=== PATIENT | female | born 1975 | race African-American/Black ===

== ENCOUNTER 2016-10-26 22:35 | Emergency (ER) | payer MEDICARE, OTHER ==
[2016-10-26 18:43] LABS: BASOPHILS 0.1 %; BASOPHILS ABSOLUTE 0.01 10/3/uL (0.0-0.16); EOSINOPHILS 0.6 %; EOSINOPHILS ABSOLUTE 0.05 10/3/uL (0.0-0.53); ER CBC TAT 0 Hrs 08 Mins; HEMATOCRIT 41.9 % (36.0-48.0); HEMOGLOBIN 14.4 g/dL (12.0-16.0); IMMATURE GRANULOCYTES 0.1 %; IMMATURE GRANULOCYTES ABSOLUTE 0.01 10/3/uL (0.0-0.11); LYMPHOCYTES ABSOLUTE 3.94 10/3/uL (0.67-4.30); MEAN CORPUS HGB CONC 34.4 g/dL (32.0-36.0); MEAN CORPUSCULAR HEMOGLOB 30.6 pg (26.0-34.0); MEAN CORPUSCULAR VOLUME 89.1 fL (80-100); MEAN PLATELET VOLUME 8.8 fL (9.2-13.0); MONOCYTES 7.3 %; NEUTROPHILS 43.9 %; PLATELET COUNT 385 10/3/uL (150-400); RBC DISTRIBUTION WIDTH 12.9 % (12.0-16.0); WHITE BLOOD CELLS 8.2 10/3/uL (4.5-10.5)
[2016-10-26 18:46] LABS: MANUAL DIFF NO %
[2016-10-26 18:52] LABS: INTERNATIONAL NORMAL RATI 1.4 UNITS (-); PARTIAL THROMBO TIME 33.1 SEC (22.5-37.2)
[2016-10-26 18:56] LABS: PROTIME (NOT ORD) 17.1 SEC (12.0-14.5)
[2016-10-26 18:57] LABS: BUN (BLOOD UREA NITROGEN) 10 MG/DL (6-23); CHEST PAIN PROFILE TAT 0 Hrs 22 Mins; CHLORIDE, SERUM 96 MMOL/L (96-112); CREATININE 0.88 MG/DL (0.55-1.02); GFR AFRICAN AMERICAN 93 ML/MIN (>=60); GFR NON AFRICAN AMERICAN 80 ML/MIN (>=60); POTASSIUM, SERUM 3.2 MMOL/L (3.5-5.3); SODIUM, SERUM 136 MMOL/L (135-148); TROPONIN I 0.03 NG/ML (<0.05)
[2016-10-26 19:00] LABS: CALCIUM, SERUM 8.1 MG/DL (8.5-10.4); CO2 (CARBON DIOXIDE) 30 MMOL/L (24-34); GLUCOSE, SERUM 98 MG/DL (60-99)
[2016-10-26 20:11] LABS: CPK 179 U/L (0-200)
[2016-10-26 20:38] LABS: SED RATE 20 MM/HR (0-20)
[~2016-10-26 22:35] MED LIST: *UNABLE2; 1; ACET500CAP PO; ADOXA100 MG PO; AMILORID5B PO; ANALPRAM-HC1 CRE RE; APRES50 PO; ASAB PO; AUG875 PO; AVAP150 PO; BIOTIN5 MG PO; C1 PO; CARDCD120 PO; CARTIA XT180 MG/24 PO; CAT2 PO; CATAPRES2; CELLCEPT5 PO; CLINDA150; CLONIDINE TOP; COLCH6 PO; COLCRYS0.6 MG PO; COREG6 PO; COUMADIN10 MG PO; COZ50 PO; COZAAR100 MG PO; CYMBALTA60 PO; DEMA10T PO; DEMA20 PO; DIGITEK0.125 MG PO; DRISDOL50000 UNT PO; EFFER-K25 MEQ PO; ELIDEL TOP; ELIQUIS 5 MG TAB5 MG PO; FLECAINIDE100 MG PO; FLEX PO; FLORASTOR250 MG PO; HARD NAILS PO; HCTZ25B PO; HCTZ50B PO; IBU400 PO; IMOD PO; JANTOVEN1 MG PO; JANTOVEN10 MG; JANTOVEN10 MG PO; KCL40UDL PO; KDUR20 PO; KLONO2 PO; KLOR-CON M2020 MEQ PO; LOP100 PO; LOP25 PO; LORTAB 5 PO; LORTAB10 PO; LOVENOX120 SC; MACROBID PO; MAGOX4 PO; MAXIMUM D3 PO; METHOC750B PO; METOPROLOL; MICARDIS80 PO; MYFORTIC180 MG PO; MYRBETRIQ25 MG PO; MYRBETRIQ50 MG PO; NEUR300 PO; NEUR400 PO; NEUR600 PO; NIFEDICAL PO; NIFEDICAL XL30 MG PO; NITROSTAT0.4 MG SL; NORCO1 TAB PO; NORV10 PO; NORV25 PO; NORV5 PO; NTG150 SL; OXYIR5 MG PO; PERCOCET1 TA4 PO; PLAQ200B PO; POT CHLORIDE20 % PO; PRAVACHOL40 MG PO; PRIN10 PO; PROBIOTIC OTC PO; PROCTOSOL HC2.5 % RE; PROTONIX PO; SPIRO25 PO; SPIRO50 PO; T PO; TAMBOCOR PO; TEKTUR150 PO; TOPROL XL200 MG PO; TOPXL100 PO; TOPXL50 PO; ULTRAM50 PO; VANCO1P IV; VITAMIN B-12 OTC PO; VITAMIN D3 PO; VITD PO; ZOFRAN4 PO; ZOL50 PO; [UNRECOGNIZED DRUG - OTHER] PO; [UNRECOGNIZED DRUG - OTHER] TOP
[2017-03-02] MEDS ORDERED: FORTAMET500 MG PO (22:52)
[2017-03-02] MEDS ORDERED: JANTOVEN10 MG PO (22:52)
[2017-03-02] MEDS ORDERED: NIZORALCRM TOP (22:52)
[2017-03-02] MEDS ORDERED: TOPXL50 PO (22:53)
[2017-03-02] MEDS ORDERED: ZANAFLEX2 MG PO (22:53)
[2017-03-02] MEDS ORDERED: PRAVACHOL40 MG PO (22:53)
[2017-03-02] MEDS ORDERED: TRULICITY1.5 MG/0.5 SC (22:53)
[2017-03-02] MEDS ORDERED: FLEX PO (22:54)
[2017-03-02] MEDS ORDERED: CYMBALTA60 PO (22:54)
[2017-03-02] MEDS ORDERED: CATAPRES2 TOP (22:54)
[2017-03-02] MEDS ORDERED: DEMA20 PO (22:54)
[2017-03-02] MEDS ORDERED: PLAQ200B PO (22:55)
[2017-03-02] MEDS ORDERED: NEUR600 PO (22:55)
[2017-03-02] MEDS ORDERED: KDUR20 PO (22:55)
[2017-03-02] MEDS ORDERED: PROTONIX PO (22:56)
[2017-03-02] MEDS ORDERED: ZOFRAN4 PO (22:56)
[2017-03-02] MEDS ORDERED: VITD PO (22:56)
[2017-03-02] MEDS ORDERED: FLECAINIDE100 MG PO (22:57)
[2017-03-02] MEDS ORDERED: TUMERIC OTC PO (22:58)
[2017-03-02] MEDS ORDERED: VITAMIN B-12 OTC PO (23:00)
[2017-03-02] MEDS ORDERED: NITROSTAT0.4 MG SL (23:04)
[2017-03-04] MEDS ORDERED: T PO (15:54)
== END 2016-10-26 22:43 | disposition home or self-care (01) ==
LOC: ER 22:35
PROVIDERS: Emergency Medicine
DX: E87.6 Hypokalemia (principal); F41.9 Anxiety disorder, unspecified; I25.2 Old myocardial infarction; Z95.810 Presence of automatic (implantable) cardiac defibrillator; I10 Essential (primary) hypertension; Z88.8 Allergy status to other drugs, medicaments and biological substances; Z79.899 Other long term (current) drug therapy; Z79.82 Long term (current) use of aspirin
CPT/HCPCS: 71020; 80048; 82550; 83735; 84484; 85025; 85610; 85652; 85730; 93005; 96365; 96366; 99285; A9270-GY